=== PATIENT | female | born 2000 | race Caucasian/White ===

== ENCOUNTER 2018-08-20 14:54 | Emergency (ER) | payer BC ==
[2018-08-20] MEDS ORDERED: NS 1,000 ML IV ONE (15:42)
[2018-08-20] MEDS ORDERED: DEXAMETHASONE 10 MG/ML VIAL IVP ONE (15:42)
[2018-08-20] MEDS ORDERED: METOCLOPRAMIDE 10 MG/2 ML VIAL IVP ONE (15:52)
--- NOTE | 2018-08-20 15:52 | EDPHY ---
H & P Time Seen by Provider: 08/20/18 15:19 HPI/ROS: CHIEF COMPLAINT: Headache History by patient HISTORY OF PRESENT ILLNESS: 17-year-old woman with history of persistent, daily headaches for the past year since she had 2 syncopal episodes a year ago and struck her head both times. Since that time she gets daily headaches along with some neck pain for which she has been followed by a sports concussion specialist. She has had an MRI of her head and neck. She says when her headaches get bad she sometimes vomits. She says she has trouble with her vision tracking. She says working on the computer at work makes it worse. 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 She has taken a leave of absence because of these headaches from her educational program for physical therapy and dance. She was given an oral prednisone taper about 3 weeks ago which lasted for week which she said somewhat change the nature of the headaches but did not make them go away. She describes it as a knife radiating from the back of her head into her between her eyes. She says the light sometimes bother her eyes. She says she has a headache when she wakes up in the morning as well as when she goes to bed at night and that she never has any pain free time. She said several months ago the headaches were less severe but over the past few weeks have seemed to gotten severe again. She came to the ER today because the headache was so bad she felt she had to leave work. She has been taking ibuprofen which gives her a little bit of relief. She does admit to taking daily ibuprofen and/or Aleve for the past several weeks. She also takes muscle relaxants for her neck pain when she goes to bed at night. She says the sometimes helps. She does take Adderall 40 mg a day and she says she took this this morning. She denies taking extra doses. REVIEW OF SYSTEMS: As in HPI, and all other systems reviewed and are negative Smoking Status: Never smoked Physical Exam: General Appearance: Alert, tearful, nontoxic. Head: normocephalic, atraumatic Eyes: Pupils dilated, equal and round, reactive to light, no pallor or injection. Extraocular movements intact. Mouth: Mucous membranes moist. Neck: Full range of motion with no meningismus Respiratory: Normal, effort, lungs are clear to auscultation. No wheezes, rales or rhonchi. Cardiovascular: Regular rate and rhythm. S1, S2, no murmurs, gallops or rubs appreciated Gastrointestinal: Abdomen is soft and nontender, no masses, bowel sounds normal. Back: No CVA tenderness, no bony tenderness Neurological: Awake, alert and oriented x 3, cranial nerves 2 through 12 intact , no pronator drift, normal gait, DTRs 2+ and equal bilaterally, sensation equal bilaterally, walks on heels and toes Skin: Warm and dry, no rashes. Musculoskeletal: No deformities or tenderness. Extremities: full range of motion, no edema, DP2+ bilat Psychiatric: Patient has normal affect, there is no agitation, she is tearful. Constitutional: Initial Vital Signs Temperature (C) 37.1 C 08/20/18 15:17 Heart Rate 118 H 08/20/18 15:17 Respiratory Rate 20 08/20/18 15:17 Blood Pressure 139/103 H 08/20/18 15:17 O2 Sat (%) 98 08/20/18 15:17 O2 Delivery Mode Room Air Allergies/Adverse Reactions: sertraline HCl [From Zoloft] Allergy (Verified 08/20/18 15:14) Home Medications: Medication Instructions Recorded Adderall 10 MG (RX) 12/16/14 Remeron 12/16/14 Bcp 08/20/18 MIRTAZAPINE 08/20/18 Muscle Relaxer 08/20/18 MDM/Departure - MDM Medications Given: Discontinued Medications Dexamethasone (Decadron Injection) 10 mg IVP EDNOW ONE Stop: 08/20/18 15:43 Last Admin: 08/20/18 15:59 Dose: 10 mg Diphenhydramine HCl (Benadryl Injection) 25 mg IVP EDNOW ONE Stop: 08/20/18 15:43 Last Admin: 08/20/18 15:59 Dose: 25 mg Sodium Chloride (Ns) 1,000 mls @ 0 mls/hr IV ONCE ONE; Wide Open PRN Reason: Protocol Stop: 08/20/18 15:43 Last Admin: 08/20/18 15:58 Dose: 1,000 mls Metoclopramide HCl (Reglan Injection) 10 mg IVP EDNOW ONE Stop: 08/20/18 15:53 Last Admin: 08/20/18 16:06 Dose: 10 mg ED Course/Re-evaluation: 17-year-old girl presents with worsening of her chronic headache. Here the patient is neurologically intact, nontoxic-appearing and there are no red flags. She has had an extensive workup as an outpatient. I was concerned about medication overuse headache given her daily use of NSAIDs and we did discuss this. Patient states that her physician i have talked to her about this before as well, but she does not know what else to do about the headaches. Patient was given dose of IV Reglan, IV Benadryl and IV dexamethasone as well as IV fluids for symptomatic relief. Patient was feeling better after these medications and requested to go home so she could sleep in her own bed. I did note that the patient's heart rate and blood pressure improved after these medications however, her slightly high blood pressure, heart rate and dilated pupils suggest that perhaps her dose of Adderall is affecting these. I recommend she follows with her primary care physician to discuss this dosing. - Depart Disposition: Home, Routine, Self-Care Clinical Impression: Headache Qualifiers: Headache type: unspecified Headache chronicity pattern: chronic headache Intractability: not intractable Qualified Code(s): R51 - Headache Condition: Fair Instructions: Acute Headache (ED) Additional Instructions: YOU WERE SEEN BY DR. DOMINICK PEREZ TODAY. Please follow-up with your concussion specialist Dr. Velazco to discuss trigger point injections. I also recommend following up with a neurologist who is a headache specialist, such as someone in Dr. Muniz's office or a painter aircraft. I recommend stop taking ibuprofen and/or Aleve for the next several weeks as your headache may be related to or worsened by daily use of these medications. Please discuss your dose of Adderall with her primary care physician as this may be contributing to your blood pressure and heart rate running high. RETURN FOR ANY WORSENING OR NEW CONCERNS. Referrals: ALBA ARTIS [Primary Care Provider] - As per Instructions Dean Bowens DO [Medical Doctor] - As per Instructions
[2018-08-20 17:19] VITALS: BP 123/65
== END 2018-08-20 17:17 | disposition home or self-care (01) ==
LOC: CED 14:54
DX: R51 Headache (principal); E86.9 Volume depletion, unspecified; Z87.828 Personal history of other (healed) physical injury and trauma
CPT/HCPCS: 96361-ER; 96374-ER; 96375-ER; 99284-ER; J1100; J1200; J2765